=== PATIENT | female | born 1955 | race Caucasian/White ===

== ENCOUNTER 2016-10-31 04:00 | Emergency (ER) | payer SELFPAY | END 2016-10-31 05:25 | disposition home or self-care (01) | LOC: ER 04:00 | DX: J20.9 Acute bronchitis, unspecified (principal); J06.9 Acute upper respiratory infection, unspecified; J01.20 Acute ethmoidal sinusitis, unspecified; J01.00 Acute maxillary sinusitis, unspecified | CPT/HCPCS: 71020; 87804; 87880 ==